=== PATIENT | female | born 2000 | race Caucasian/White ===

== ENCOUNTER 2024-05-06 13:00 | Emergency (ER) | payer MEDICAID ==
[~2024-05-06] VITALS: Ht 149.9 cm; Wt 63.5 kg
[2024-05-06 13:36] VITALS: O2SAT 99
[2024-05-06] MEDS: KETOROLAC 30MG/ML VIAL IM STA (14:31)
[2024-05-06] MEDS: PENICILLIN G BENZATHINE 1,200,000 UNITS/2ML SYR IM ONE (14:45)
[2024-05-06] MEDS: METHYLPREDNISOLONE SOD SUCC 125MG/2ML (ACT-O-VIAL) IM ONE (14:45)
[2024-05-06] MEDS ORDERED: NAPR-681 PO (16:58)
[2024-05-06] MEDS ORDERED: AMOX-494 MT (16:58)
[2024-05-06 17:13] VITALS: BP 107/63; PULSE 93; RESP 18; TEMP 37.05852; O2SAT 100
== END 2024-05-06 17:14 | disposition home or self-care (01) ==
LOC: ER 14:36
DX: J02.9 Acute pharyngitis, unspecified (principal); R05.9 Cough, unspecified
CPT/HCPCS: 81025; 87430; 96372; 99284; J1885; J2919; J0561; Z7610